=== PATIENT | female | born 1965 | race Caucasian/White ===

== ENCOUNTER → 2021-04-15 | Day surgery (SDC) | payer OTHER ==
[~2021-04-15] MED LIST: BENAZEPRIL HCL10 MG PO; LINZESS145 MCG PO; MIDAZOLAM HCL 2 MG/2 ML VIAL ONE; OMEPRAZOLE40 MG PO; PRAVASTATIN SOD10 MG PO; SODIUM CHLORIDE 0.9% 50ML 50 ML ONE; SYNJARDY 5-5001 EACH PO
[2021-04-15 14:29] LABS: WBC,FECAL (FECAL LACTOFERRIN) NEGATIVE (NEGATIVE)
[2021-04-15 14:45] VITALS: BP 131/96
[2021-04-16 14:49] LABS: C DIFFICILE TOXIN A&B AMP PROB NEGATIVE (NEGATIVE)
== END | disposition home or self-care (01) ==
LOC: OR 09:19
PROVIDERS: ATTEND Internal Medicine Gastroenterology
DX: K29.70 Gastritis, unspecified, without bleeding (principal); D12.2 Benign neoplasm of ascending colon; D12.4 Benign neoplasm of descending colon; K62.1 Rectal polyp; K52.9 Noninfective gastroenteritis and colitis, unspecified; K20.90 Esophagitis, unspecified without bleeding; K59.09 Other constipation; K44.9 Diaphragmatic hernia without obstruction or gangrene; K64.8 Other hemorrhoids; E11.9 Type 2 diabetes mellitus without complications; I10 Essential (primary) hypertension; F17.210 Nicotine dependence, cigarettes, uncomplicated; Z01.810 Encounter for preprocedural cardiovascular examination; Z01.812 Encounter for preprocedural laboratory examination; Z20.822 Contact with and (suspected) exposure to COVID-19; Z79.84 Long term (current) use of oral hypoglycemic drugs
CPT/HCPCS: 36415; 43239; 43450; 45380; 45384; 45385; 82948; 83630; 83993; 84443; 87045; 87177; 87328; 87493; 93005; C9113; J2250; U0002; 45378

== ENCOUNTER 2024-04-06 14:18 | Observation (INO) | payer OTHER ==
[~2024-04-06] VITALS: Ht 152.4 cm; Wt 59.0 kg
[~2024-04-06 14:18] MED LIST changes: -MIDAZOLAM HCL 2 MG/2 ML VIAL ONE; -SODIUM CHLORIDE 0.9% 50ML 50 ML ONE
[2024-04-06 14:20] VITALS: TEMP 98.6
[2024-04-06 14:37] LABS: BASOPHILS # (AUTO) 0.1 (0.0-0.1); BASOPHILS % 0.5 % (0.0-1.0); EOSINOPHILS # (AUTO) 0.3 (0.0-0.4); EOSINOPHILS % 2.8 % (0.0-6.0); HEMATOCRIT 46.3 % (34.2-44.1); HEMOGLOBIN 15.4 g/dL (12.0-16.0); LYMPHOCYTES # (AUTO) 5.6 (1.0-3.2); LYMPHOCYTES % 60.1 % (18.0-39.1); MEAN CORPUSCULAR HEMOGLOBIN 34.6 pg (28-32); MEAN CORPUSCULAR HGB CONC 33.3 g/dL (31-35); MONOCYTES # (AUTO) 0.8 (0.2-0.8); MONOCYTES % 8.6 % (4.4-11.3); NEUTROPHILS # (AUTO) 2.6 (2.1-6.9); NEUTROPHILS % 27.8 % (38.7-80.0); PLATELET COUNT 294 x10e3/uL (140-360); RED BLOOD COUNT 4.45 x10e6/uL (3.6-5.1); WHITE BLOOD COUNT 9.35 x10e3/uL (4.8-10.8)
[2024-04-06 14:49] LABS: INR 0.93; PROTHROMBIN TIME 12.9 seconds (11.9-14.5)
[2024-04-06 14:50] LABS: PARTIAL THROMBOPLASTIN TIME 26.9 seconds (23.8-35.5)
[2024-04-06 14:59] LABS: ALANINE AMINOTRANSFERASE 19 IU/L (0-55); ALBUMIN 4.3 g/dL (3.5-5.0); ALBUMIN/GLOBULIN RATIO 1.4 (0.8-2.0); ALKALINE PHOSPHATASE 98 IU/L (40-150); BILIRUBIN,TOTAL 0.6 mg/dL (0.2-1.2); BLOOD UREA NITROGEN 8 mg/dL (7-26); BUN/CREATININE RATIO 11 (6-25); CALCIUM 10.3 mg/dL (8.4-10.2); CARBON DIOXIDE 23 mmol/L (22-29); CHLORIDE 104 mmol/L (98-107); CREATINE KINASE 50 IU/L (29-168); CREATININE, SERUM 0.74 mg/dL (0.57-1.11); EST GLOMERULAR FILTRATION RATE 94 ML/MIN (>=60); GLUCOSE 113 mg/dL (74-118); SODIUM 141 mmol/L (136-145); TOTAL PROTEIN 7.4 g/dL (6.5-8.1)
[2024-04-06 15:06] LABS: TROPONIN I < 0.001 ng/mL (0-0.300)
[2024-04-06 15:50] LABS: ANISOCYTOSIS SLIGHT; LYMPHOCYTES % (MANUAL) 61 % (19-48); MONOCYTES % (MANUAL) 6 % (3.4-9.0); NEUTROPHILS % (MANUAL) 31 % (40-74); PLATELET ESTIMATE ADEQUATE; PLATELET MORPHOLOGY COMMENT NORMAL; REACTIVE LYMPHOCYTES 2
[2024-04-06] MEDS ORDERED: IOPAMIDOL 370 MG/ML 100 ML INFUS..BTL INJ ONE (16:04)
[2024-04-06] MEDS: SODIUM CHLORIDE 0.9% 1000ML 1,000 ML IV STA (16:12)
[2024-04-06] MEDS: DONNATAL/LIDOCAINE/MAALOX 30 ML SUSP PO ONE (16:12)
[2024-04-06 16:30] VITALS: PULSE 83; RESP 18
[2024-04-06] MEDS ORDERED: ONDANSETRON HCL INJ 2MG/ML 2ML 2 MG/ML VIAL IV PRN (16:30)
[2024-04-06] MEDS: ASPIRIN 81 MG ENTERIC COATED PO STA (16:59)
[2024-04-06 17:30] VITALS: BP 131/86; PULSE 78; RESP 18; O2SAT 98
[2024-04-06 18:04] VITALS: BP 131/86; PULSE 78; RESP 18; O2SAT 98
[2024-04-06] MEDS ORDERED: VITAMIN C1000 MG PO (19:31)
[2024-04-06] MEDS ORDERED: OYSTER SHELL C1 EA12 PO (19:31)
[2024-04-06 20:38] VITALS: BP 128/79; PULSE 81; RESP 20; TEMP 98.3; O2SAT 100
[2024-04-07 00:10] VITALS: BP 111/72; PULSE 72; RESP 18; TEMP 97.8; O2SAT 99
[2024-04-07 00:34] LABS: CREATINE KINASE 32 IU/L (29-168)
[2024-04-07 00:44] LABS: TROPONIN I < 0.001 ng/mL (0-0.300)
[2024-04-07 04:20] VITALS: BP 110/70; PULSE 70; RESP 16; TEMP 98.1; O2SAT 100
[2024-04-07 06:19] LABS: BASOPHILS % 0.4 % (0.0-1.0); EOSINOPHILS # (AUTO) 0.3 (0.0-0.4); EOSINOPHILS % 3.7 % (0.0-6.0); HEMATOCRIT 42.1 % (34.2-44.1); HEMOGLOBIN 13.9 g/dL (12.0-16.0); LYMPHOCYTES # (AUTO) 4.6 (1.0-3.2); LYMPHOCYTES % 58.6 % (18.0-39.1); MEAN CORPUSCULAR HEMOGLOBIN 34.8 pg (28-32); MEAN CORPUSCULAR VOLUME 105.3 fL (81-99); MONOCYTES # (AUTO) 0.5 (0.2-0.8); MONOCYTES % 6.6 % (4.4-11.3); NEUTROPHILS # (AUTO) 2.4 (2.1-6.9); NEUTROPHILS % 30.3 % (38.7-80.0); PLATELET COUNT 245 x10e3/uL (140-360); RED CELL DISTRIBUTION WIDTH 11.8 % (11.7-14.4); WHITE BLOOD COUNT 7.89 x10e3/uL (4.8-10.8)
[2024-04-07 06:30] LABS: CREATINE KINASE 38 IU/L (29-168)
[2024-04-07 06:32] LABS: ALBUMIN 3.6 g/dL (3.5-5.0); ALBUMIN/GLOBULIN RATIO 1.4 (0.8-2.0); ANION GAP 14.9 mmol/L (8-16); BILIRUBIN,TOTAL 0.6 mg/dL (0.2-1.2); CALCIUM 8.9 mg/dL (8.4-10.2); CHOL/HDL RATIO 5.7 (3.0-3.6); CREATININE, SERUM 0.68 mg/dL (0.57-1.11); POTASSIUM 3.9 mmol/L (3.5-5.1); TOTAL PROTEIN 6.1 g/dL (6.5-8.1)
[2024-04-07 06:48] LABS: TROPONIN I < 0.001 ng/mL (0-0.300)
[2024-04-07 08:00] VITALS: BP 113/70; PULSE 68; RESP 17; TEMP 97.6; O2SAT 100
[2024-04-07 08:11] VITALS: BP 113/70; PULSE 68; RESP 17; TEMP 97.6; O2SAT 100
[2024-04-07] MEDS: ASPIRIN 81 MG ENTERIC COATED PO SCH (08:15)
[2024-04-07 11:55] VITALS: BP 104/71; PULSE 75; RESP 17; TEMP 97.5; O2SAT 99
[2024-04-07 15:30] VITALS: BP 106/72; PULSE 70; RESP 17; TEMP 97.8; O2SAT 99
== END 2024-04-07 15:46 | disposition left against medical advice (07) ==
LOC: ER 14:45 → ERHOLD 16:17 → MED/SURG3 17:25
PROVIDERS: ADMIT Internal Medicine; ATTEND Internal Medicine
DX: R07.2 Precordial pain (principal); Z53.29 Procedure and treatment not carried out because of patient's decision for other reasons; I10 Essential (primary) hypertension; E11.9 Type 2 diabetes mellitus without complications; Z79.84 Long term (current) use of oral hypoglycemic drugs; K21.9 Gastro-esophageal reflux disease without esophagitis; M54.9 Dorsalgia, unspecified; G89.29 Other chronic pain; F17.200 Nicotine dependence, unspecified, uncomplicated; Z79.899 Other long term (current) drug therapy; Z79.82 Long term (current) use of aspirin
CPT/HCPCS: 36415 ×2; 71046; 71260; 74177; 80053 ×2; 80061; 82550 ×2; 82948 ×2; 83690; 83735; 84484 ×2; 85025 ×2; 85379; 85610; 85730; 93005; 99284; G0378 ×2; J2470; Q9967